=== PATIENT | male | born 1990 | race Caucasian/White ===

== ENCOUNTER 2020-10-30 18:13 | Emergency (ER) | payer OTHER ==
[~2020-10-30] VITALS: Ht 177.8 cm; Wt 77.0 kg
[2020-10-30 18:24] VITALS: BP 120/81
--- NOTE | 2020-10-30 19:46 | NUR ---
pt presents to ed with R knee pain after dislocation at work last noc. WON Back at bedside.
--- NOTE | 2020-10-30 20:56 | NUR ---
KNEE IMMOBILIZER APPLIED, PT EDUCTAED ON USE FOR CRUTCHES AND DC INSTRUCTIONS, VERBALIZED UNDERSTANDING. AMBULATORY CRUTCH WALKING TO DC DESK WITH STEADY GAIT.
== END 2020-10-30 21:13 | disposition home or self-care (01) ==
LOC: ED 20:40
DX: G89.11 Acute pain due to trauma (principal); M25.561 Pain in right knee; W18.30XA Fall on same level, unspecified, initial encounter; Y93.89 Activity, other specified; Y92.69 Other specified industrial and construction area as the place of occurrence of the external cause; Y99.8 Other external cause status
CPT/HCPCS: 29505; 99283